=== PATIENT | female | born 1980 ===

== ENCOUNTER 2025-04-24 07:00 | Day surgery (SDC) | payer OTHER ==
[2025-04-12 08:37] LABS: BASO % 0.2 % (0.1-1.2); EOS # 0.12 (0.04-0.54); EOS % 2.2 % (0.7-7.0); LYMPH # 0.75 (1.18-3.74); LYMPH % 13.8 % (19.3-53.1); MEAN PLATELET VOLUME 9.80 fl (9.4-12.4); MONO # 0.45 (0.24-0.82); MONO % 8.3 % (4.7-12.5); NEUT # 4.06 (1.56-6.13); NEUT % 74.9 % (34.0-71.1); RED CELL DISTRIBUTION WIDTH 15.5 % (11.6-14.4)
[2025-04-12 08:42] LABS: URINE APPEARANCE Clear; URINE BILIRRUBIN Negative (NEGATIVE); URINE BLOOD Negative; URINE COLOR Yellow; URINE GLUCOSE Negative (NEGATIVE); URINE KETONE Negative (NEGATIVE); URINE LEUKOCYTE Negative; URINE NITRATE Negative; URINE PROTEIN Negative (NEGATIVE); URINE UROBILINOGEN 0.2 E.U./dl
[2025-04-12 08:46] LABS: URINE BACTERIA 814.7 uL (0.0-1933); URINE EPITHELIAL CELLS 14.6 uL (0.0-38.8); URINE RBC 6.5 uL (0.0-20.8); URINE WBC 6.9 uL (0.0-23.2)
[2025-04-12 08:52] LABS: URINE CAST 0.14 uL (0.0-1.40)
[2025-04-12 08:56] LABS: INR 1.0
[2025-04-12 09:17] VITALS: BP 112/73
[2025-04-12 09:19] LABS: ALT/SGPT 22.0 U/L (12-78); AST/SGOT 13.0 U/L (15-37); BILIRUBIN TOTAL 0.38 mg/dL (0.3-1.2); BUN CREA RATIO 20.0 (7.0-25.0); CREATININE SERUM 0.54 mg/dL (0.55-1.02); GFR 121.54; GLOBULINA 3.3 G/DL (2.4-3.5); GLUCOSE FASTING 139.0 mg/dL (65-100); OSMOLALITY SERUM 283.0 MOSM/KG (275-295)
[~2025-04-24] VITALS: Ht 167.6 cm; Wt 101.6 kg
[~2025-04-24 07:00] MED LIST: LIPITOR20 MG PO; LYRICA100 MG PO; METFORMIN HCL1000 M2 PO; TOLTERODINE TART4 MG PO
[2025-04-24] MEDS ORDERED: CEFOXITIN SODIUM 2,000 MG VIAL IV ONE (08:26)
[2025-04-24] MEDS ORDERED: POVIDONE-IODINE 118 ML BOTT TOP ONE (08:35)
[2025-04-24] MEDS ORDERED: SUGAMMADEX SODIUM 200 MG/2 ML VIAL IV ONE (09:40)
[2025-04-24] MEDS ORDERED: ONDANSETRON HCL 2 MG/ML VIAL IV ONE (10:15)
[2025-04-24] MEDS ORDERED: KETOROLAC TROMETHAMINE 30 MG VIAL IV ONE (10:15)
== END 2025-04-24 11:45 | disposition home or self-care (01) ==
LOC: CIR.AMB 07:00
PROVIDERS: ATTEND Obstetrics & Gynecology
DX: N75.1 Abscess of Bartholin's gland (principal)